=== PATIENT | female | born 2000 | race Two or more races ===

== ENCOUNTER 2018-11-20 11:45 | Inpatient (IN) | payer OTHER ==
[~2018-11-20] VITALS: Ht 160 cm; Wt 62.6 kg
[2018-12-07] MEDS ORDERED: PRENATAL TABLE1 EAC4 (09:11)
[2018-12-07] MEDS ORDERED: LEVOTHYROXINE25 MCG PO (09:12)
== END 2018-12-09 13:01 | disposition home or self-care (01) | DRG 807 ==
LOC: LDR 11:45 → OB/GYN 12-07 15:23 → LDR 12-10 11:45
PROVIDERS: ADMIT Obstetrics & Gynecology Maternal & Fetal Medicine
PROC: 10E0XZZ Delivery of Products of Conception, External Approach (ICD-10-PCS; principal; 2018-12-07)
PROC: 4A0HXFZ Measurement of Products of Conception, Cardiac Rhythm, External Approach (ICD-10-PCS; 2018-12-07)
PROC: 0UQGXZZ Repair Vagina, External Approach (ICD-10-PCS; 2018-12-07)
DX: O71.4 Obstetric high vaginal laceration alone (principal); Z37.0 Single live birth; Z3A.39 39 weeks gestation of pregnancy

== ENCOUNTER 2018-11-27 09:15 | Outpatient (CLI) | payer OTHER | END 2018-11-27 10:26 | disposition home or self-care (01) | LOC: NST 09:15 | DX: Z34.83 Encounter for supervision of other normal pregnancy, third trimester (principal) ==

== ENCOUNTER 2018-12-04 11:38 | Outpatient (CLI) | payer OTHER | END 2018-12-04 12:25 | disposition home or self-care (01) | LOC: NST 11:38 | DX: Z34.83 Encounter for supervision of other normal pregnancy, third trimester (principal) ==

== ENCOUNTER → 2020-09-10 | Outpatient (CLI) | payer OTHER ==
[~2020-09-10] MED LIST: LEVOTHYROXINE25 MCG PO; PRENATAL TABLE1 EAC4
== END | disposition home or self-care (01) ==
LOC: NST 13:37
PROVIDERS: ATTEND Obstetrics & Gynecology
DX: Z34.03 Encounter for supervision of normal first pregnancy, third trimester (principal)

== ENCOUNTER 2020-09-13 12:15 | Inpatient (IN) | payer OTHER ==
[~2020-09-13] VITALS: Ht 160 cm; Wt 67.6 kg
== END 2020-09-30 17:23 | disposition home or self-care (01) | DRG 807 ==
LOC: LDR 09-28 04:52 → SURG-SUITE 09-28 17:35 → SURH 11-05 12:15
PROVIDERS: ADMIT Obstetrics & Gynecology; ATTEND Obstetrics & Gynecology
PROC: 10E0XZZ Delivery of Products of Conception, External Approach (ICD-10-PCS; principal; 2020-09-28)
PROC: 0KQM0ZZ Repair Perineum Muscle, Open Approach (ICD-10-PCS; 2020-09-28)
PROC: 4A1HXFZ Monitoring of Products of Conception, Cardiac Rhythm, External Approach (ICD-10-PCS; 2020-09-28)
DX: O70.1 Second degree perineal laceration during delivery (principal); Z37.0 Single live birth; Z3A.39 39 weeks gestation of pregnancy; Z20.822 Contact with and (suspected) exposure to COVID-19